=== PATIENT | female | born 1965 | race Caucasian/White ===

== ENCOUNTER 2017-07-03 10:39 | Emergency (ER) | END 2017-07-03 14:12 | disposition home or self-care (01) ==

== ENCOUNTER 2018-06-21 14:06 | Emergency (ER) | payer SELFPAY ==
[~2018-06-21 14:06] MED LIST: CYCL10TA7 PO; IBUP800T48 PO
== END 2018-06-21 16:13 | disposition left against medical advice (07) ==
LOC: E/R 14:06
DX: Z53.21 Procedure and treatment not carried out due to patient leaving prior to being seen by health care provider (principal)

== ENCOUNTER 2018-06-23 20:16 | Emergency (ER) | payer SELFPAY ==
[~2018-06-23] VITALS: Ht 154.9 cm; Wt 63.0 kg
[2018-06-23 21:00] VITALS: Ht 154.9 cm; Wt 63.0 kg
[2018-06-24] MEDS ORDERED: ELIM TOP (01:26)
[2018-06-24 01:43] VITALS: BP 131/71; PULSE 70; RESP 18
--- NOTE | 2018-06-24 01:56 | ERD ---
ER Documentation Chief Complaint Chief Complaint ON-GOING GENERALIZED RASH, WORSE AT NIGHT HPI This is a 52-year-old female who is brought to the ED with her daughter with complaints of an ongoing generalized rash for 10-12 weeks. Mother states rash is itchy, worse at nighttime. She said it first started on her arms but has since spread to her back, chest, abdomen, and lower extremities. Patient has tried aloe vera, tea tree oil as well as [id number] Benadryl and Tylenol with only temporary relief of her symptoms. Patient shares a room with her other daughter. They state the daughter does not have any similar symptoms. They have washed the patient's bedding, change her sheets, changed her body wash without any improvement of her symptoms. No history of allergies. No fevers, chill, no drainage, no pain. No other complaints. ROS All systems reviewed and are negative except as per history of present illness. Medications Home Meds Active Scripts Permethrin* (Elimite*) 5% Cr, 1 APPLIC TOP ONCE, #2 TUB Prov:LEANDRO LLAMAS PA-C 06/24/18 Ibuprofen* (Motrin*) 800 Mg Tab, 800 MG PO Q6, #30 TAB Prov:TAYE COLES PA-C 07/03/17 Cyclobenzaprine Hcl* (Cyclobenzaprine Hcl*) 10 Mg Tablet, 10 MG PO QHS, #20 TAB Prov:TAYE COLES PA-C 07/03/17 Allergies Allergies: Coded Allergies: Penicillins (Verified Allergy, Intermediate, 07/03/17) SOB PMhx/Soc History of Surgery: Yes (tubal ligation) Anesthesia Reaction: No Hx Neurological Disorder: No Hx Respiratory Disorders: Yes (asthma) Hx Cardiac Disorders: No Hx Psychiatric Problems: No Hx Miscellaneous Medical Probl: No Hx Alcohol Use: No Hx Substance Use: No Hx Tobacco Use: No Smoking Status: Never smoker Physical Exam Vitals Vital Signs Date Temp Pulse Resp B/P (MAP) Pulse Ox O2 O2 Flow FiO2 Time Delivery Rate 06/23/18 98.7 68 16 145/84 98 21:00 (104) Physical Exam Const: No acute distress Head: Atraumatic Eyes: Normal Conjunctiva ENT: Normal External Ears, Nose and Mouth. Neck: Full range of motion. No meningismus. Skin: + Multiple small erythematous papular rash on bilateral arms, lower abdomen and bilateral lower legs with excoriations. Neur: Awake and alert Psych: Normal Mood and Affect Procedures/MDM EMERGENCY DEPARTMENT COURSE / MEDICAL DECISION MAKING: This is a 52-year-old female who is brought to the ED with her daughter with complaints of a generalized rash, ongoing for the past 12 weeks. History and physical is most consistent with scabies therefore patient will be treated with a prescription for Permethrin cream. I discussed with daughter that I do not think symptoms suggest an allergic or bacterial cause. I have low suspicion for Miramontes-Jaison syndrome, Kawasaki's, sepsis or other emergent process. She has no signs to suggest a secondary bacterial infection at this time and is stable for outpatient follow-up and management. She was provided a list of community clinics and dermatologists to follow-up with if symptoms have not improved. I recommended using the permethrin cream as prescribed, and repeat again in 1 week. I recommended frequent cleaning the patient's room, and laundering of her clothing and bedding with hot water. Strict return precautions are given. Prior to discharge, patients vital signs have been reviewed SPECIALIST FOLLOW UP RECOMMENDED: stock counter Blood Pressure Assessment: Patient's blood pressure was elevated (>120/80) but appears stable without evidence of hypertension emergency or urgency. The patient was counseled about the risks of hypertension and urged to pursue outpatient monitoring and therapy within a week with their primary care physician. Departure Diagnosis: Primary Impression: Rash and other nonspecific skin eruption Condition: Stable Patient Instructions: [place] Topical lotion Referrals: [facility] YOU HAVE RECEIVED A MEDICAL SCREENING EXAM AND THE RESULTS INDICATE THAT YOU DO NOT HAVE A CONDITION THAT REQUIRES URGENT TREATMENT IN THE EMERGENCY DEPARTMENT. FURTHER EVALUATION AND TREATMENT OF YOUR CONDITION CAN WAIT UNTIL YOU ARE SEEN I N YOUR DOCTORS OFFICE WITHIN THE NEXT 1-2 DAYS. IT IS YOUR RESPONSIBILITY TO MAKE AN APPOINTMENT FOR FOLOW-UP CARE. IF YOU HAVE A PRIMARY DOCTOR --you should call your primary doctor and schedule an appointment IF YOU DO NOT HAVE A PRIMARY DOCTOR YOU CAN CALL OUR PHYSICIAN REFERRAL HOTLINE AT IF YOU CAN NOT AFFORD TO SEE A PHYSICIAN YOU CAN CHOSE FROM THE FOLLOWING [facility] [address] [facility]. [facility] [address] [facility] [address] [facility] [address] [facility]. [facility] [address] [facility]. [facility]. [address] Additional Instructions: Please apply the lotion over the entire body and leave on for about 8-12 hours before rinsing. He can reapply this lotion again 1 week later. I recommend washing and cleaning her bed sheets in hot water. You are welcome to return to the ED if symptoms not improved. LEANDRO LLAMAS PA-C Jun 24, 2018 01:56
== END 2018-06-24 01:44 | disposition home or self-care (01) ==
LOC: FTE 20:16
DX: R21 Rash and other nonspecific skin eruption (principal); J45.909 Unspecified asthma, uncomplicated
CPT/HCPCS: 99282